=== PATIENT | female | born 1975 | race Caucasian/White ===

== ENCOUNTER 2017-03-12 09:45 | Emergency (ER) | payer SELFPAY ==
[~2017-03-12] VITALS: Wt 81.8 kg
[~2017-03-12 09:45] MED LIST: ACET500T98; PREN1TAB12
[2017-03-12] MEDS ORDERED: HYDROCODONE/APAP (5/325) TAB PO ONE (10:30)
--- NOTE | 2017-03-12 10:46 | ERD ---
ER Documentation Chief Complaint Chief Complaint l. ankle pain s/p trauma HPI 41-year-old female presenting one hour status post mechanical trip with trauma to the left ankle. States that the pain is 10 out of 10. Has not taken any medications for the pain. Denies any medical conditions. Denies injury to other areas of the body or loss of consciousness. Denies numbness, tingling, loss of range of motion. Patient has no other complaints and describes no other associated manifestations. Nursing notes have been reviewed and are consistent with history given. ROS All systems reviewed and are negative except as per history of present illness. Medications Home Meds Active Scripts Hydrocodone/Acetaminophen (Wilson 5-325 Tablet) 1 Each Tablet, 1 TAB PO Q6H Y for PAIN, #7 TAB Prov:RAMOS WELLS PA-C 03/12/17 Reported Medications Vit/Fe Fumarate/Fa ( 1-1 Tablet) 1 Tab Tablet 04/05/10 Acetaminophen (Tylenol) 500 Mg Tab 04/05/10 Allergies Allergies: Coded Allergies: No Known Allergy (Verified , 03/12/17) PMhx/Soc Medical and Surgical Hx: pt denies Medical Hx History of Surgery: Yes () Anesthesia Reaction: No Hx Neurological Disorder: No Hx Respiratory Disorders: No Hx Cardiac Disorders: No Hx Psychiatric Problems: No Hx Miscellaneous Medical Probl: No Hx Alcohol Use: No Hx Substance Use: No Hx Tobacco Use: No Smoking Status: Never smoker Physical Exam Vitals Physical Exam Const: Well-appearing 41-year-old female in no acute distress Head: Atraumatic Eyes: Normal Conjunctiva ENT: Normal External Ears, Nose and Mouth. Neck: Full range of motion..~ No meningismus. Resp: Clear to auscultation bilaterally Cardio: Regular rate and rhythm, no murmurs. Cap refill less than 2 seconds. Dorsalis pedis and posterior tibial pulses 2+ bilaterally. Skin: No petechiae or rashes Back: No midline or flank tenderness Ext: No cyanosis, or edema. Decreased range of motion secondary to pain. Achilles tendon intact. Mild tenderness to palpation over the lateral malleolus. Neur: Awake and alert. Neurovascularly intact. Psych: Normal Mood and Affect Results 24 hrs Current Medications Medications (Trade) Dose Ordered Sig/Mike Route PRN Reason Start Time Stop Time Status Last Admin Dose Admin Acetaminophen/ Hydrocodone Bitart (Wilson (5/325)) 1 tab ONCE ONCE PO 03/12/17 10:30 03/12/17 10:32 DC 03/12/17 10:41 Procedures/MDM Pt presents with cc of L ankle trauma as described in hx and pe. Wilson given with adequate relief of sxs. XR obtained and given the following impression: IMPRESSION: Left ankle sprain. I have no suspicion for bony pathology or NV compromise. Most likely dx is ankle sprain. Stirrup applied. NV intact after application. Pt already has crutches. I have instructed to follow up with ortho in the next week. They have vrebally acknowledged and agreed. Already have ortho doctor. Stable for DC. Departure Diagnosis: Primary Impression: Ankle sprain Encounter type: initial encounter Involved ligament of ankle: unspecified ligament Laterality: left Qualified Code: S93.402A - Sprain of left ankle, unspecified ligament, initial encounter Additional Impressions: Ankle pain Chronicity: acute Laterality: left Qualified Code: M25.572 - Acute left ankle pain Ankle injury Encounter type: initial encounter Laterality: left Qualified Code: S99.912A - Injury of left ankle, initial encounter Condition: Stable Additional Instructions: follow up with ortho in next week. OTC ibuprofen as instructed for discomfort and swelling. Return if sxs change or worsen. RAMOS WELLS PA-C Mar 12, 2017 10:46
[2017-03-12] MEDS ORDERED: HYDR-906 PO (11:07)
--- NOTE | 2017-03-12 12:09 | RADRPT ---
PROCEDURE: XR Left Ankle CLINICAL INDICATION: Trauma TECHNIQUE: Standard 3 view radiographs were submitted. COMPARISON: None FINDINGS: Osseous structures: Well mineralized and intact with no fracture or destructive process identified. Joint spaces: Well maintained with no significant erosions or spurring evident. Soft tissues: There is mild soft tissue swelling about the lateral malleolus compatible with a sprai n. IMPRESSION: Left ankle sprain. Physician Feliciano Date Time Electronically viewed and signed by Ela José Physician on 03/12/2017 12:08 /
== END 2017-03-12 12:23 | disposition home or self-care (01) ==
LOC: FTE 09:45
DX: S93.402A Sprain of unspecified ligament of left ankle, initial encounter (principal); W18.40XA Slipping, tripping and stumbling without falling, unspecified, initial encounter; Y92.9 Unspecified place or not applicable
CPT/HCPCS: 73610